=== PATIENT | female | born 1950 | race Caucasian/White ===

== ENCOUNTER 2016-11-03 11:44 | Emergency (ER) | payer OTHER ==
[~2016-11-03] VITALS: Ht 165.1 cm; Wt 81.0 kg
[~2016-11-03 11:44] MED LIST: ADVAIR 250/501 DISK IH; ATORVASTATIN CA20 MG PO; ATROVENT 00.5 MG/2.5 IH; AUGMENTIN875 MG PO; BENICAR40 MG PO; BUSPAR15 MG PO; BUSPIRONE HCL15 MG PO; CATAPRES0.1 MG PO; CLONAZEPAM0.5 MG PO; CRESTOR10 MG PO; DALIRESP500 MCG PO; FENOFIBRATE145 M1 PO; Humibid LA,Mucinex PO; LASIX40 MG PO; LEVAQUIN500 MG PO; LO-DOSE ASPIRIN81 M1 PO; LOPRESSOR25 MG PO; METFORMIN HCL500 MG PO; METOPROLOL TART25 MG PO; PANCREAZE 4,201 EACH PO; PREDNISONE20 MG PO; PREDNISONE50 MG PO; PROTONIX40 MG PO; PROVENTIL HFA6.7 GM IH; PROVENTIL,2.5 MG/3 M IH; PROZAC40 MG PO; RANITIDINE HCL300 MG PO; SINGULAIR10 MG PO; SPIRIVA1 INHALATI IH; TESSALON200 MG PO; THEO-DUR,THEOC300 MG PO; TRICOR48 MG PO; VENTOLIN HFA18 GM IH; WELCHOL625 MG PO; predniSONE PO
[2016-11-03] MEDS ORDERED: AUGMENTIN875 MG PO (13:30)
[2016-11-03] MEDS ORDERED: NAPROSYN500 MG PO (13:30)
[2016-11-03 13:40] VITALS: BP 131/77
== END 2016-11-03 13:41 | disposition home or self-care (01) ==
LOC: EME 11:44
PROC: 3E0234Z Introduction of Serum, Toxoid and Vaccine into Muscle, Percutaneous Approach (ICD-10-PCS; principal; 2016-11-03)
DX: S60.811A Abrasion of right wrist, initial encounter (principal); Z23 Encounter for immunization; W55.01XA Bitten by cat, initial encounter; E78.5 Hyperlipidemia, unspecified; I10 Essential (primary) hypertension; Z88.1 Allergy status to other antibiotic agents; Z88.6 Allergy status to analgesic agent
CPT/HCPCS: 99281; 99283

== ENCOUNTER 2017-01-12 12:51 | Emergency (ER) | payer OTHER ==
[~2017-01-12] VITALS: Ht 165.1 cm; Wt 82.4 kg
[~2017-01-12 12:51] MED LIST changes: +NAPROSYN500 MG PO
[2017-01-12] MEDS ORDERED: AUGMENTIN875 MG PO (13:59)
[2017-01-12 14:11] VITALS: BP 102/78
== END 2017-01-12 14:12 | disposition home or self-care (01) ==
LOC: EME 12:51
DX: S60.511A Abrasion of right hand, initial encounter (principal); W55.03XA Scratched by cat, initial encounter; R11.0 Nausea; E11.9 Type 2 diabetes mellitus without complications; Z79.84 Long term (current) use of oral hypoglycemic drugs; Z79.82 Long term (current) use of aspirin; Z72.0 Tobacco use
CPT/HCPCS: 99281; 99284

== ENCOUNTER 2017-03-03 11:23 | Emergency (ER) | payer OTHER ==
[~2017-03-03] VITALS: Ht 165.1 cm; Wt 83.8 kg
[2017-03-03] MEDS ORDERED: INDOCIN50 MG PO (13:42)
[2017-03-03] MEDS ORDERED: FLEXERIL10 MG PO (13:42)
[2017-03-03 13:56] VITALS: BP 134/92
== END 2017-03-03 13:57 | disposition home or self-care (01) ==
LOC: EME 11:23
DX: M54.5 Low back pain (principal); J44.9 Chronic obstructive pulmonary disease, unspecified; E11.9 Type 2 diabetes mellitus without complications; E78.5 Hyperlipidemia, unspecified; F41.9 Anxiety disorder, unspecified; F32.9 Major depressive disorder, single episode, unspecified; I25.2 Old myocardial infarction; Z86.73 Personal history of transient ischemic attack (TIA), and cerebral infarction without residual deficits; Z87.891 Personal history of nicotine dependence; Z79.84 Long term (current) use of oral hypoglycemic drugs; Z79.82 Long term (current) use of aspirin; Z88.5 Allergy status to narcotic agent; Z88.2 Allergy status to sulfonamides; Z88.1 Allergy status to other antibiotic agents; Z88.8 Allergy status to other drugs, medicaments and biological substances
CPT/HCPCS: 99281; 99283

== ENCOUNTER → 2017-04-07 | Outpatient (CLI) | payer MEDICARE, OTHER ==
[~2017-04-07] MED LIST changes: +FLEXERIL10 MG PO; +INDOCIN50 MG PO
== END | disposition home or self-care (01) ==
LOC: CDC 11:18
DX: Z01.810 Encounter for preprocedural cardiovascular examination (principal); H25.11 Age-related nuclear cataract, right eye; I44.0 Atrioventricular block, first degree
CPT/HCPCS: 93000